=== PATIENT | male | born 1990 | race Caucasian/White ===

== ENCOUNTER 2016-12-22 20:04 | Emergency (ER) | payer MEDICAID ==
[~2016-12-22] VITALS: Ht 177.8 cm; Wt 70.3 kg
[2016-12-22] MEDS ORDERED: ANTIBIOTIC FOR ACNE (20:17)
[2016-12-22] MEDS ORDERED: BUPIVACAINE 0.25% 30 ML VIAL TP ONE (20:45)
[2016-12-22] MEDS ORDERED: LIDOCAINE HCL 1% 20 ML VIAL IJ ONE (20:45)
--- NOTE | 2016-12-22 20:59 | NUR ---
Patient discharged to home in stable conditon. Written and verbal after care instructions given. Patient verbalizes understanding of instructions.
== END 2016-12-22 21:01 | disposition home or self-care (01) ==
LOC: ER 20:05
DX: S63.276A Dislocation of unspecified interphalangeal joint of right little finger, initial encounter (principal); X58.XXXA Exposure to other specified factors, initial encounter; Y93.64 Activity, baseball; Y99.8 Other external cause status; Y92.89 Other specified places as the place of occurrence of the external cause
CPT/HCPCS: 73140; A4663